=== PATIENT | female | born 1990 | race Two or more races ===

== ENCOUNTER 2023-07-17 12:29 | Emergency (ER) | payer OTHER ==
[~2023-07-17] VITALS: Ht 167.6 cm; Wt 81.6 kg
[2023-07-17 13:05] VITALS: BP 126/58; PULSE 75; RESP 18; TEMP 98.7; O2SAT 99
[2023-07-17 13:09] LABS: Basophils # (auto) 0.1 10 ^3/uL (0-0.2); Basophils % (auto) 0.9 % (0.0-2.0); Eosinophils # (auto) 0.2 10 ^3/uL (0-0.8); Eosinophils % (auto) 1.8 % (0.0-7.0); Hematocrit 38.8 % (36.0-46.0); Hemoglobin 12.8 g/dL (12.2-16.2); Lymphocytes # (auto) 2.5 10 ^3/uL (0.4-5.4); Lymphocytes % (auto) 27.6 % (10.0-50.0); Mean Corpuscular Hemoglobin 28.4 pg (28.0-32.0); Mean Corpuscular Volume 86.3 fL (80.0-100.0); Monocytes # (auto) 0.4 10 ^3/uL (0-1.3); Monocytes % (auto) 4.4 % (0.0-12.0); Neutrophils # (auto) 5.9 10 ^3/uL (1.6-8.6); Neutrophils % (auto) 65.3 % (37.0-80.0); Red Cell Distribution Width 14.5 % (11.8-14.3)
[2023-07-17 13:17] LABS: Chloride 107 mmol/L (98-107); Potassium 3.6 mmol/L (3.5-5.1); Sodium 137 mmol/L (136-145)
[2023-07-17 13:18] LABS: Anion Gap 8 (5-15); Carbon Dioxide 22 mmol/L (20-30)
[2023-07-17 13:19] LABS: Calcium 8.8 mg/dL (8.5-10.1)
[2023-07-17 13:23] LABS: BUN/Creatinine Ratio 7.1 (10.0-20.0); Blood Urea Nitrogen 5 mg/dL (9-23); Glucose 77 mg/dL (74-106)
[2023-07-17 14:09] LABS: Urine Bacteria FEW /hpf (None Seen); Urine Blood 3+ /uL (Negative); Urine Clarity Clear (Clear); Urine Color Yellow (Yellow); Urine Protein, UAD TRACE (Negative); Urine Specific Gravity 1.023 (1.001-1.035); Urine Urobilinogen Normal (Negative); Urine WBC 28 /hpf (0 - 5); Urine pH 5.5 (5.0-8.0)
[2023-07-17] MEDS ORDERED: NITR-87 PO (14:52)
== END 2023-07-17 15:01 | disposition home or self-care (01) ==
LOC: ER 12:29
DX: O20.0 Threatened abortion (principal); R10.2 Pelvic and perineal pain; O23.41 Unspecified infection of urinary tract in pregnancy, first trimester; O20.9 Hemorrhage in early pregnancy, unspecified; Z3A.01 Less than 8 weeks gestation of pregnancy
CPT/HCPCS: 36415; 76801; 80048; 81001; 81025; 84702; 85025